=== PATIENT | female | born 1985 ===

== ENCOUNTER 2018-05-21 15:01 | Emergency (ER) | payer BC ==
--- NOTE | 2018-05-21 15:57 | OBHP ---
Datetime: 05/21/2018 15:51 IP Adm Impression: Term, intrauterine ; No Active Labor; Intact Membranes IP Admit Plan: Observation/Evaluation; Discharge home Admit Comment, IP Provider: Patient is a 1 para 0 at 40 weeks gestation patient presents to the L_D complaining of pelvic pressure discomfort patient denies leakage of fluid she reports good fe daily movement no vaginal bleeding. Patient's care unremarkable Past medical history none Past surgical history none Medications vitamins No known drug allergies Social history denies alcohol tobacco use Review of systems patient denies headache chest pain shortness of breath palpitations nausea vomit ing diarrhea heat or cold intolerance easy bruisability musculoskeletal or neurological complaints Vital signs stable afebrile Physical exam see notes Intrauterine at 40 weeks latent labor Observation, labor precautions, kick counts, external monitor Patient cleared for discharge follow-up with Dr. Holbrook on Thursday Pelvic Type - PN: Adequate Extremities - PN: Normal Abdomen - PN: Normal Back - PN: Normal Breast - PN: Not Done Lungs - PN: Normal Heart - PN: Normal Thyroid - PN: Normal Neurologic - PN: Normal HEENT - PN: Normal General - PN: Normal Presentation-Admit: Vertex FHR - Baseline A Provider: 145 Gestation - Est Wks by US: 40.0 EGA AdmitDate IP: 40.2 Vital Signs Provider: Reviewed IP Chief Complaint: Uterine contractions; Maternal discomfort NICHD Variability Prov Fetus A: Moderate 6-25bpm NICHD Accel Fetus A IP Provider: 15X15 FHR Category Provider Fetus A: Category II NICHD Decel Fetus A IP Provider: None Dilatation, Provider: 2 Effacement, Provider: 75 Station, Provider: -2 Genitourinary Exam: Normal DTRs - PN: Normal
[2018-05-21 20:36] VITALS: BP 113/79; PULSE 78; RESP 18; TEMP 98.1; O2SAT 98
== END 2018-05-21 15:55 | disposition home or self-care (01) ==
LOC: H.EROB2 15:01
DX: O26.93 Pregnancy related conditions, unspecified, third trimester (principal); R10.2 Pelvic and perineal pain; Z3A.40 40 weeks gestation of pregnancy; O48.0 Post-term pregnancy

== ENCOUNTER 2018-05-22 01:53 | Inpatient (IN) | payer BC ==
[2018-05-22] MEDS: Lactated Ringer's 1,000 ML IV ONE ×2 (02:20→03:20)
[2018-05-22 02:27] VITALS: BMI 33.6
[2018-05-22] MEDS ORDERED: Fentanyl/Bupivacaine HCl 250 ML EPI ONE ×2 (02:40→02:46)
[2018-05-22 02:55] LABS: BASO # 0.1 K/uL (0.0-0.2); BASO % 0.4 % (0.0-2.0); EOS # 0.1 K/uL (0.0-0.7); EOS % 0.9 % (0.0-4.0); HEMOGLOBIN 12.5 g/dL (12.0-16.0); LYMPH # 1.8 K/uL (1.0-4.3); LYMPH % 10.7 % (20.0-40.0); MEAN CELL VOLUME 86.9 fl (81.0-99.0); MEAN CORPUSCULAR HEMOGLOBIN 28.9 pg (27.0-31.0); MEAN CORPUSCULAR HGB CONC 33.3 g/dL (33.0-37.0); MEAN PLATELET VOLUME 12.8 fl (7.2-11.7); MONO # 0.9 K/uL (0.0-0.8); MONO % 5.1 % (0.0-10.0); NEUT # 14.1 K/uL (1.8-7.0); NEUT % 82.9 % (50.0-75.0); RBC 4.31 Mil/uL (3.80-5.20); RED CELL DISTRIBUTION WIDTH 13.9 % (11.5-14.5)
[2018-05-22] MEDS ORDERED: Oxytocin 30 UNITS in Sodium Chloride 0.9% 500 ML IV ONE (03:38)
[2018-05-22] MEDS: Lactated Ringer's 1,000 ML IV SCH ×2 (04:20→11:13)
[2018-05-22 07:53] VITALS: O2SAT 100
--- NOTE | 2018-05-22 08:26 | OBHP ---
Datetime: 05/22/2018 02:51 IP Adm Impression: Term, intrauterine ; Active labor IP Admit Plan: Admit to unit; Initiate labor protocol Admit Comment, IP Provider: 32 y/o , 40.3 wks based on LMP of 08/12/18 with LEILA of 05/19/18 prese nts to [facility] with CTx. Patient was seen yesterday when she was 3 cm dilated so discharged home with la bor precautions. At about 5 PM yesterday contractions started more regular Q 3-4 mins with lower abdo ciaran pressure and pain. Reports normal movements. Denies LOF or VB. Denies CP, headache, dizziness, dysuira, nausea, vomiting, LE swelling. PNC: Dr. Holbrook, records reviewed. PMHx: Denies PSHx: Denies Allergies: NKDA F/H: Noncontributory SOcial: Denies EtOH/tobacco/drugs Medications: PNVs PE: General: In distress during CTx Chest: RRR, S1S2 present Lungs: CTA B/L Abdomen: Gravid, NT Ext: No pedal edema B/L SVE: 6/100%/-2 A/P: 32 y/o , 40.3 wks based on LMP of 08/12/18 with LEILA of 05/19/18 presents to [facility] with CTx. - EFM and toco monitoring - 6/100%/-2 - admit to unit - initiate labor protocol - GBS Negative - Anesthesia consult for epidural - NPO - LR @ 999 and 125 ml/hr Case discussed with Attending Xavier Garcia, PGY1 Attending Note: Patient was seen and examined with Resident and I agree with the above assessment. Pelvic Type - PN: Not Done Extremities - PN: Normal Abdomen - PN: Normal Back - PN: Normal Breast - PN: Normal Lungs - PN: Normal Heart - PN: Normal Thyroid - PN: Not Done Neurologic - PN: Normal HEENT - PN: Normal General - PN: Normal FHR - Baseline A Provider: 140 Membranes, Provider: Intact Contraction Comments Provider: regular Comments, ACOG Physical Exam: General: In distress during CTx Chest: RRR, S1S2 present Lungs: CTA B/L Abdomen: Gravid, NT Ext: No pedal edema B/L SVE: 6/100%/-2 IP Hx Assessment: The History has been Reviewed and is Current EGA AdmitDate IP: 40.3 Vital Signs Provider: Reviewed; Within Normal Limits IP Indication for Induction: Not Applicable IP Chief Complaint: Uterine contractions; Maternal discomfort NICHD Variability Prov Fetus A: Moderate 6-25bpm NICHD Accel Fetus A IP Provider: 15X15 FHR Category Provider Fetus A: Category I NICHD Decel Fetus A IP Provider: None Dilatation, Provider: 6 Effacement, Provider: 100 Station, Provider: -2 Genitourinary Exam: Normal DTRs - PN: Not Done
[2018-05-22] MEDS ORDERED: Lidocaine 2% MPF (5 ml) Inj ONE (09:20)
[2018-05-22] MEDS ORDERED: Oxytocin 30 UNIT 30 UNITS/500 ML BAG IV ONE ×3 (10:54→16:21)
[2018-05-22] MEDS: OXYTOCIN/0.9 % NS 20 UNIT/1,000 ML BAG IV SCH ×2 (11:45→13:45)
[2018-05-22] MEDS ORDERED: Benzocaine/Menthol SPRAY TOP PRN ×2 (13:20→16:21)
[2018-05-22] MEDS ORDERED: Oxycodone/Acetaminophen 5/325 mg Tab PO PRN ×2 (13:20→16:21)
--- NOTE | 2018-05-22 13:26 | OBDS ---
DELIVERY PERSONNEL Delivery Doctor: Michael Roland MD Resident: Dr. Garnica MATERNAL INFORMATION Delivery Anesthesia: Epidural Medications in Delivery: pitocin 30units Placenta Cultured: No Provider Comments: Uncomplicated spontaneous vaginal delivery of a viable male with sco res of 9 and 9. Baby delivered in the RONALD positioning over a second degree lacearation which was repaired with 2-0 chromic under epidural anesthesia and with good cosmesis. EBL- 400mls Patient tolerated the procedure well. LABOR SUMMARY EDC: 05/19/2018 00:00 No. Babies in Womb: 1 Attempted: No Labor Anesthesia: Epidural LABOR INFORMATION Reason for Induction: Not Applicable Onset of Labor: 05/21/2018 23:00 Complete Dilatation: 05/22/2018 07:30 Oxytocin: Augmentation Group B Beta Strep: Negative Antibiotics # of Doses: n/a Antibiotics Time of Last Dose: n/a Steroids Given: None Reason Steroids Not Administered: Not Applicable MEMBRANES Membranes Rupture Method: Artificial Rupture of Membranes: 05/22/2018 07:30 Length of Rupture (hrs): 5.22 Amniotic Fluid Color: Clear Amniotic Fluid Amount: Small Amniotic Fluid Odor: Normal STAGES OF LABOR Stage 1 hrs: 8 Stage 1 min: 30 Stage 2 hrs: 5 Stage 2 min: 13 Stage 3 hrs: 0 Stage 3 min: 2 Total Time in Labor hrs: 13 Total Time in Labor min: 45 VAGINAL DELIVERY Episiotomy: None Laceration Extension: Second Degree Laceration Type: Vaginal Sponge Count Correct: Yes Sharps Count Correct: Yes BABY A INFORMATION Infant Delivery Date/Time: 05/22/2018 12:43 Method of Delivery: Vaginal Born in Route : No : N/A Forceps: N/A Vacuum Extraction: N/A Shoulder Dystocia : No SHOULDER DYSTOCIA BABY A Delivery Date/Time: 05/22/2018 12:43 PRESENTATION/POSITION BABY A Presentation: Cephalic Cephalic Presentation: Vertex Breech Presentation: N/A PLACENTA INFORMATION BABY A Placenta Delivery Time : 05/22/2018 12:45 Placenta Method of Delivery: Spontaneous Placenta Status: Delivered SCORES BABY A Heart Rate 1 min: >100 bpm Resp Effort 1 min: Good Cry Reflex Irritability 1 min: Cough or Sneeze or Pulls Away Muscle Tone 1 min: Active Motion Color 1 min: Body [place], Extremities Blue Resuscitation Effort 1 min: Tactile Stimulation SCORE 1 MIN: 9 Heart Rate 5 min: >100 bpm Resp Effort 5 min: Good Cry Reflex Irritability 5 min: Cough or Sneeze or Pulls Away Muscle Tone 5 min: Active Motion Color 5 min: Body [place], Extremities Blue Resuscitation Effort 5 min: N/A SCORE 5 MIN: 9 INFORMATION BABY A Gestational Age at Delivery: 40.3 Gestational Status: Post-term Infant Outcome : Liveborn Infant Condition : Stable Infant Sex: Male IDENTIFICATION/MEDS BABY A ID Band Number: [id number] ID Band Location: Left Leg; Left Arm Vitamin K Given : Not Given Erythromycin Given: Not Given CORD INFORMATION BABY A No. Cord Vessels: 3 Nuchal Cord : N/A Nuchal Cord Other: n/a True Knot: n/a Infant Cord pH Baby Arterial: n/a Infant Cord pH Baby Venous: n/a Cord Blood Taken: Yes Banking/Donate Info: n/a Infant Suction: Mouth; Nose ASSESSMENT BABY A Infant Complications: None Physical Findings at Delivery: Within Normal Limits Respirations: Appears Normal Waffle Machine Operator/ALS Called : No Infant Care By: priti Lieberman Transferred To: Remains with Mother
[2018-05-22] MEDS ORDERED: Lactated Ringer's 1,000 ML IV SCH (16:21)
[2018-05-22] MEDS ORDERED: OXYTOCIN/0.9 % NS 20 UNIT/1,000 ML BAG IV SCH (16:21)
[2018-05-23 07:17] LABS: BASO # 0.1 K/uL (0.0-0.2); BASO % 0.5 % (0.0-2.0); EOS # 0.2 K/uL (0.0-0.7); EOS % 1.4 % (0.0-4.0); HEMOGLOBIN 9.1 g/dL (12.0-16.0); LYMPH # 1.8 K/uL (1.0-4.3); LYMPH % 11.7 % (20.0-40.0); MEAN CELL VOLUME 87.7 fl (81.0-99.0); MEAN CORPUSCULAR HEMOGLOBIN 28.8 pg (27.0-31.0); MEAN CORPUSCULAR HGB CONC 32.9 g/dL (33.0-37.0); MEAN PLATELET VOLUME 11.9 fl (7.2-11.7); MONO # 0.7 K/uL (0.0-0.8); MONO % 4.8 % (0.0-10.0); NEUT # 12.3 K/uL (1.8-7.0); NEUT % 81.6 % (50.0-75.0); RBC 3.16 Mil/uL (3.80-5.20); RED CELL DISTRIBUTION WIDTH 13.7 % (11.5-14.5); WHITE BLOOD COUNT 15.1 K/uL (4.8-10.8)
[2018-05-23] MEDS ORDERED: Multivitamin With Minerals Tab PO SCH ×2 (09:00)
[2018-05-23] MEDS ORDERED: Influenza Vaccine (5 YR UP)/PF 60 MCG/0.5 ML SYR IM ONE (09:00)
--- NOTE | 2018-05-23 10:08 | OBHP ---
Datetime: 05/22/2018 02:51 EGA AdmitDate IP: 40.3 Datetime: 05/22/2018 02:32 IP Adm Impression: Term, intrauterine ; Active labor Admit Comment, IP Provider: 32 y/o , 40.3 wks based on LMP of 08/12/18 with LEILA of 05/19/18 prese nts to [facility] with CTx. Patient was seen yesterday when she was 3 cm dilated so discharged home with la bor precautions. At about 5 PM yesterday contractions started more regular Q 3-4 mins with lower abdo ciaran pressure and pain. Reports normal movements. Denies LOF or VB. Denies CP, headache, dizziness, dysuira, nausea, vomiting, LE swelling. PNC: Dr. Holbrook, records reviewed. PMHx: Denies PSHx: Denies Allergies: NKDA F/H: Noncontributory SOcial: Denies EtOH/tobacco/drugs Medications: PNVs PE: General: In distress during CTx Chest: RRR, S1S2 present Lungs: CTA B/L Abdomen: Gravid, NT Ext: No pedal edema B/L SVE: 6/100%/-2 A/P: 32 y/o , 40.3 wks based on LMP of 08/12/18 with LEILA of 05/19/18 presents to [facility] with CTx. - EFM and toco monitoring - 6/100%/-2 - admit to unit - initiate labor protocol Case discussed with Attending Xavier Garcia, PGY1. Attending Note: Patient seen with resident and I agree with the above.
--- NOTE | 2018-05-23 10:11 | OBADHP ---
Datetime: 05/22/2018 02:51 Pelvic Type - PN: Not Done Extremities - PN: Normal Abdomen - PN: Normal Back - PN: Normal Breast - PN: Normal Lungs - PN: Normal Heart - PN: Normal Thyroid - PN: Not Done Neurologic - PN: Normal HEENT - PN: Normal General - PN: Normal FHR - Baseline A Provider: 140 Membranes, Provider: Intact Contraction Comments Provider: regular Comments, ACOG Physical Exam: General: In distress during CTx Chest: RRR, S1S2 present Lungs: CTA B/L Abdomen: Gravid, NT Ext: No pedal edema B/L SVE: 6/100%/-2 IP Hx Assessment: The History has been Reviewed and is Current Vital Signs Provider: Reviewed; Within Normal Limits IP Chief Complaint: Uterine contractions; Maternal discomfort NICHD Variability Prov Fetus A: Moderate 6-25bpm NICHD Accel Fetus A IP Provider: 15X15 FHR Category Provider Fetus A: Category I NICHD Decel Fetus A IP Provider: None Dilatation, Provider: 6 Effacement, Provider: 100 Station, Provider: -2 Genitourinary Exam: Normal DTRs - PN: Not Done EGA AdmitDate IP: 40.3 IP Admit Plan: Admit to unit; Initiate labor protocol Datetime: 05/22/2018 02:32 Admit Comment, IP Provider: 32 y/o , 40.3 wks based on LMP of 08/12/18 with LEILA of 05/19/18 prese nts to [facility] with CTx. Patient was seen yesterday when she was 3 cm dilated so discharged home with la bor precautions. At about 5 PM yesterday contractions started more regular Q 3-4 mins with lower abdo ciaran pressure and pain. Reports normal movements. Denies LOF or VB. Denies CP, headache, dizziness, dysuira, nausea, vomiting, LE swelling. PNC: Dr. Holbrook, records reviewed. PMHx: Denies PSHx: Denies Allergies: NKDA F/H: Noncontributory SOcial: Denies EtOH/tobacco/drugs Medications: PNVs PE: General: In distress during CTx Chest: RRR, S1S2 present Lungs: CTA B/L Abdomen: Gravid, NT Ext: No pedal edema B/L SVE: 6/100%/-2 A/P: 32 y/o , 40.3 wks based on LMP of 08/12/18 with LEILA of 05/19/18 presents to [facility] with CTx. - EFM and toco monitoring - 6/100%/-2 - admit to unit - initiate labor protocol Case discussed with Attending Xavier Garcia, PGY1. Attending Note: Patient seen with resident and I agree with the above. IP Adm Impression: Term, intrauterine ; Active labor Datetime: 05/21/2018 15:51 Presentation-Admit: Vertex Gestation - Est Wks by US: 40.0
--- NOTE | 2018-05-23 10:11 | OBPPN ---
Datetime: 05/23/2018 10:09 PP Pain Prov: Within normal limits PP Nausea Prov: Denies PP Flatus Prov: Yes PP Breasts Prov: Normal PP Heart Prov: Normal PP Lungs Prov: Normal PP Abdomen/Uterus Prov: Normal PP Lochia Prov: Normal PP Vulva/Perineum Prov: Normal PP CVA Tenderness Prov: Normal PP Extremities Prov: Normal PP Progress Prov: Normal PP Comments Phys Exam Prov: Abd: Soft, NT, BS - present UT- Firm PP Impression Prov: Normal progression PP Plan Prov: Continue present management PP Progress Note Prov: S/P , PPD#1 Clinically Stable. Plan: Continue care. Vital Signs Provider PP: Reviewed
--- NOTE | 2018-05-24 09:51 | OBDCSUM ---
Datetime: 05/24/2018 07:25 Discharged to, Provider: Home Follow up at, Provider: OB Disch Instr Activity: Normal activity; May be up to bathroom; May be up for meals; May Shower Disch Instr Diet: Regular Discharge Diagnosis, Provider: Term Delivered Discharge Time: 05/24/2018 07:26 Follow up in weeks, Provider: 4-6weeks Disch Referrals: None Disch Activity Restrictions: Minimize stair-climbing; No sexual activity; Nothing in vagina - Interc ourse, tampons, douche
[2018-05-24 23:42] VITALS: BP 120/79; PULSE 82; RESP 20; TEMP 98.4
== END 2018-05-24 14:10 | disposition home or self-care (01) | DRG 807 ==
LOC: H.EROB2 01:53 → H.L&D 02:27 → H.OB/GYN 15:30
PROVIDERS: ADMIT Obstetrics & Gynecology; ATTEND Obstetrics & Gynecology
PROC: 10E0XZZ Delivery of Products of Conception, External Approach (ICD-10-PCS; principal; 2018-05-22)
PROC: 0KQM0ZZ Repair Perineum Muscle, Open Approach (ICD-10-PCS; 2018-05-22)
PROC: 10907ZC Drainage of Amniotic Fluid, Therapeutic from Products of Conception, Via Natural or Artificial Opening (ICD-10-PCS; 2018-05-22)
PROC: 3E02340 Introduction of Influenza Vaccine into Muscle, Percutaneous Approach (ICD-10-PCS; 2018-05-23)
DX: O48.0 Post-term pregnancy (principal); Z37.0 Single live birth; O70.1 Second degree perineal laceration during delivery; Z3A.40 40 weeks gestation of pregnancy; Z23 Encounter for immunization